=== PATIENT | female | born 1995 | race Caucasian/White ===

== ENCOUNTER 2018-06-28 23:48 | Emergency (ER) | payer SELFPAY ==
--- NOTE | 2018-06-29 | EDPHY ---
H & P Time Seen by Provider: 06/28/18 23:54 HPI/ROS: Chief Complaint: Depression, arm lacerations HPI: 22-year-old woman with a history of depression, on Zoloft, being brought in by EMS acutely intoxicated after self inflicting multiple superficial lacerations to bilateral forearms. Patient states she utilized a razor blade for these. Patient admits to drinking wine and vodka tonight. Says that she is increasingly depressed. Has a history of suicidal attempts in the past. Patient is not certain if she is suicidal at this time. She was placed on a mental health hold by police. She is slurring her words and appears acutely intoxicated. Denies any other ingestions. No falls. No head injury. No nausea or vomiting. Patient has been emotionally labile per EMS. ROS: 10 systems were reviewed and were negative except those elements noted in the HPI. PMH: Depression Social History: No smoking, occasional alcohol, no recreational drug use Family History: non-contributory Physical Exam: Gen: Awake, Alert, No Distress HEENT: Nose: no rhinorrhea Eyes: PERRLA, EOMI Mouth: Moist mucosa Neck: Supple, no JVD Chest: nontender, lungs clear to auscultation Heart: S1, S2 normal, no murmur Abd: Soft, non-tender, no guarding Back: no CVA tenderness, no midline tenderness Ext: no edema, non-tender, patient has multiple superficial lacerations on bilateral forearms. None break through the dermis. No erythema. No discharge. Skin: no rash Neuro: CN II-XII intact, Sensation grossly intact, Strength 5/5 in bilateral upper and lower extremities (Oneil Moise) Constitutional: Initial Vital Signs Temperature (C) 36.9 C 06/29/18 00:01 Heart Rate 118 H 06/29/18 00:01 Respiratory Rate 18 06/29/18 00:01 Blood Pressure 113/72 06/29/18 00:01 O2 Sat (%) 95 06/29/18 00:01 O2 Delivery Mode Room Air Medical Decision Making ED Course/Re-evaluation: 8:15 a.m.. Patient has been evaluated by mental health. Patient and mental health feel the patient is appropriate for outpatient treatment. She has already established mental health care. (Giorgio Palumbo) - Data Points Laboratory Results: Laboratory Results 06/29/18 00:10 06/29/18 00:10 06/29/18 06/29/18 06/29/18 00:44 00:10 00:10 WBC RBC Hgb Hct MCV MCH MCHC RDW Plt Count MPV Neut % (Auto) Lymph % (Auto) Meigs % (Auto) Eos % (Auto) Baso % (Auto) Nucleat RBC Rel Count Absolute Neuts (auto) Absolute Lymphs (auto) Absolute Monos (auto) Absolute Eos (auto) Absolute Basos (auto) Absolute Nucleated RBC Immature Gran % Immature Gran # Sodium 148 mEq/L H mEq/L (135-145) Potassium 4.1 mEq/L mEq/L (3.5-5.2) Chloride 111 mEq/L H mEq/L (97-110) Carbon Dioxide 22 mEq/l mEq/l (22-31) Anion Gap 15 mEq/L H mEq/L (6-14) BUN 11 mg/dL mg/dL (7-23) Creatinine 0.9 mg/dL mg/dL (0.6-1.0) Estimated GFR > 60 Glucose 87 mg/dL mg/dL (70-100) Calcium 9.4 mg/dL mg/dL (8.5-10.4) Beta HCG, Qual NEGATIVE Salicylates < 1.0 mg/dL L mg/dL (2.0-20.0) Urine Opiates Screen NEGATIVE (NEGATIVE) Acetaminophen < 10 mcg/mL L mcg/mL (10-30) Urine Barbiturates NEGATIVE (NEGATIVE) Ur Phencyclidine Scrn NEGATIVE (NEGATIVE) Ur Amphetamine Screen NEGATIVE (NEGATIVE) U Benzodiazepines Scrn NEGATIVE (NEGATIVE) Urine Cocaine Screen NEGATIVE (NEGATIVE) U Marijuana (THC) Screen NEGATIVE (NEGATIVE) Ethyl Alcohol 260 mg/dL H mg/dL (0-10) 06/29/18 00:10 WBC 6.95 10^3/uL 10^3/uL (3.80-9.50) RBC 4.20 10^6/uL 10^6/uL (4.18-5.33) Hgb 13.2 g/dL g/dL (12.6-16.3) Hct 38.9 % % (38.0-47.0) MCV 92.6 fL fL (81.5-99.8) MCH 31.4 pg pg (27.9-34.1) MCHC 33.9 g/dL g/dL (32.4-36.7) RDW 12.0 % % (11.5-15.2) Plt Count 234 10^3/uL 10^3/uL (150-400) MPV 11.9 fL H fL (8.7-11.7) Neut % (Auto) 44.7 % % (39.3-74.2) Lymph % (Auto) 46.2 % H % (15.0-45.0) Meigs % (Auto) 6.3 % % (4.5-13.0) Eos % (Auto) 1.7 % % (0.6-7.6) Baso % (Auto) 0.7 % % (0.3-1.7) Nucleat RBC Rel Count 0.0 % % (0.0-0.2) Absolute Neuts (auto) 3.10 10^3/uL 10^3/uL (1.70-6.50) Absolute Lymphs (auto) 3.21 10^3/uL H 10^3/uL (1.00-3.00) Absolute Monos (auto) 0.44 10^3/uL 10^3/uL (0.30-0.80) Absolute Eos (auto) 0.12 10^3/uL 10^3/uL (0.03-0.40) Absolute Basos (auto) 0.05 10^3/uL 10^3/uL (0.02-0.10) Absolute Nucleated RBC 0.00 10^3/uL 10^3/uL (0-0.01) Immature Gran % 0.4 % % (0.0-1.1) Immature Gran # 0.03 10^3/uL 10^3/uL (0.00-0.10) Sodium Potassium Chloride Carbon Dioxide Anion Gap BUN Creatinine Estimated GFR Glucose Calcium Beta HCG, Qual Salicylates Urine Opiates Screen Acetaminophen Urine Barbiturates Ur Phencyclidine Scrn Ur Amphetamine Screen U Benzodiazepines Scrn Urine Cocaine Screen U Marijuana (THC) Screen Ethyl Alcohol Departure - Departure Disposition: Home, Routine, Self-Care Clinical Impression: Deliberate self-cutting Alcohol intoxication Qualifiers: Complication of substance-induced condition: with unspecified complication Qualified Code(s): F10.929 - Alcohol use, unspecified with intoxication, unspecified Condition: Fair Instructions: Alcohol Intoxication (ED) Additional Instructions: Please drink alcohol responsibly. Return for thoughts of harming herself or others Keep cuts clean and dry. Return for signs of infection Follow-up with your mental health provider and utilize resources provided by mental health. Referrals: Patient,NotPresent [Unknown] - As per Instructions [facility] [Outside] - As per Instructions
[2018-06-29 00:59] LABS: PLATELET COUNT 234 10^3/uL (150-400)
[2018-06-29 08:21] VITALS: BP 94/70
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
--- NOTE | 2018-06-29 09:43 | ASMTTCLDSP ---
TLC Discharge Disposition Disposition: Answers: Discharge If Answers: Yes DISCHARGED: Patient/family given suicide hotline info & SAMHSA brochure? Disposition Notes: Notes: Pt stated commitment or ability to keep self safe, denied thoughts of self harm or harm to others. Pt expressed a desire to f/u with her therapist today as well as her next standing appointment each Wednesday at 10 a.m. Pt was given local hotline information and SAMHSA brochure After an Attempt and encouraged to follow up with her therapist today. Discharge Concerns/Recommendations: Notes: In consultation with [facility] ED physician, Giorgio Palumbo MD, Dr. Palumbo concurred that pt does not appear to meet 27-65 criteria requiring psychiatric hospitalization as pt does not appear to be an imminent risk of harm to self/others/gravely disabled due to a mental illness condition. Dr. Palumbo provided verbal order read back vacating M1 hold at 0815 hrs. Was patient given the Answers: Not applicable Inpatient Behavioral Health Prohibited Belongings List while in the ED? Psychiatrist vacating M1 Giorgio Palumbo MD Hold: Date and time M1 hold 06/29/2018 08:15 AM vacated (time format is hh:mm): Type of Hold: Answers: M1/72-hour Hold Hold initiated by: Answers: Police Date Signed: 06/29/2018 09:41 AM Electronically Signed By:Cabrera Hicks
== END 2018-06-29 08:32 | disposition home or self-care (01) ==
LOC: EDUNIT#
DX: S51.812A Laceration without foreign body of left forearm, initial encounter (principal); S51.811A Laceration without foreign body of right forearm, initial encounter; F10.929 Alcohol use, unspecified with intoxication, unspecified; F32.9 Major depressive disorder, single episode, unspecified; X78.8XXA Intentional self-harm by other sharp object, initial encounter
CPT/HCPCS: 80305; G0480